=== PATIENT | male | born 1945 | race Caucasian/White ===

== ENCOUNTER → 2019-02-02 | Outpatient (CLI) | payer OTHER | LOC: M.RAD 09:13 | DX: M47.814 Spondylosis without myelopathy or radiculopathy, thoracic region (principal); J18.9 Pneumonia, unspecified organism ==

== ENCOUNTER → 2019-07-19 | Outpatient (CLI) | payer MEDICARE ==
--- NOTE | 2019-07-19 15:59 | 2DMMODE ---
[place] [address] 2 D/M-MODE ECHOCARDIOGRAM Name: BRIAN VENEGAS Audrey Room: [facility]#: [id number] Admission: 07/19/19 Attend Phys: Renan Moser, Discharge: Date of : 43 Date of Service: 07/19/19 1558 Report #: [id number] THIS REPORT FOR: cc: Figueroa Child MD, Dean L. MD Blick, David R. MD [facility] ~ APPROVED REPORT Study performed: 07/19/2019 14:21:53 EXAM: Comprehensive 2D, Doppler, and color-flow Echocardiogram BSA: 2.06 HR: 74 bpm BP: 141/72 mmHg Other Information Study Quality: Good Indications Palpitations 2D Dimensions IVSd: 11.87 (7-11mm) LVOT Diam: 20.54 (18-24mm) LVDd: 43.29 mm PWd: 9.69 (7-11mm) Ascending Ao: 29.26 (22-36mm) LVDs: 23.56 (25-40mm) Aortic Root: 33.57 mm Volumes Left Atrial Volume (Systole) LA ESV Index: 15.20 mL/m2 Aortic Valve AoV Peak Jacobo.: 1.42 m/s AO Peak Gr.: 8.11 mmHg LVOT Max P.22 mmHg AO Mean Gr.: 4.64 mmHg LVOT Mean P.31 mmHg LVOT Max V: 1.14 m/s AO V2 VTI: 27.38 cm LVOT Mean V: 0.69 m/s ROSHAN (VTI): 2.71 cm2 LVOT V1 VTI: 22.42 cm Mitral Valve E/A Ratio: 0.70 MV Decel. Time: 248.63 [place] [address] 2 D/M-MODE ECHOCARDIOGRAM Name: BRIAN VENEGAS Room: [facility]#: [id number] Admission: 07/19/19 Attend Phys: Renan Moser, Discharge: Date of : 43 Date of Service: 07/19/19 1558 Report #: [id number] MV E Max Jacobo.: 0.57 m/s MV PHT: 72.10 ms MVA (PHT): 3.05 cm2 TDI E/Lateral E': 8.14 E/Medial E': 6.33 Medial E' Jacobo.: 0.09 m/s Lateral E' Jacobo.: 0.07 m/s Pulmonary Valve PV Peak Jacobo.: 1.32 m/s PV Peak Gr.: 7.01 mmHg Left Ventricle The left ventricle is normal size. There is normal LV segmental wall motion. There is normal left ventricular wall thickness. Left ventricular systolic function is normal. The left ventricular ejection fraction is within the normal range. LVEF is 60-65%. Grade I - abnormal relaxation pattern. Right Ventricle The right ventricle is normal size. The right ventricular systolic function is normal. Atria The left atrium size is normal. The right atrium size is normal. Aortic Valve The aortic valve is normal in structure. No aortic regurgitation is present. There is no aortic valvular stenosis. Mitral Valve The mitral valve is normal in structure. Trace mitral regurgitation. Mild mitral regurgitation. No evidence of mitral valve stenosis. Tricuspid Valve The tricuspid valve is normal in structure. There is no tricuspid valve regurgitation noted. Pulmonic Valve The pulmonary valve is normal in structure. There is no pulmonic valvular regurgitation. Great Vessels The aortic root is normal in size[place] [address] 2 D/M-MODE ECHOCARDIOGRAM Name: BRIAN VENEGAS Room: [facility]#: [id number] Admission: 07/19/19 Attend Phys: Renan Moser, Discharge: Date of : 43 Date of Service: 07/19/19 1558 Report #: [id number] visualized. Pericardium There is no pericardial effusion. <Conclusion> Left ventricular systolic function is normal. The left ventricular ejection fraction is within the normal range. <ELECTRONICALLY SIGNED> By: Paul Kimble MD, FAC 07/19/19 1558 1558 1558 Paul Kimble MD, [facility] /INF
--- NOTE | 2019-07-19 17:17 | CARDNUC ---
[place] [address] CARDIAC NUCLEAR IMAGING REPORT Name: BRIAN VENEGAS Room: [facility]#: [id number] Admission: 07/19/19 Attend Phys: Renan Moser, Discharge: Date of : 43 Date of Service: 07/19/19 1715 Report #: [id number] THIS REPORT FOR: cc: Figueroa Child MD, Dean L. MD Liston, Michael J. MD [facility] ~ APPROVED REPORT Study performed: 07/19/2019 14:45:24 Exam: Nuclear Stress Test Indication: Chest pain, Fatigue, Palpitations, Diaphoresis. Patient Location: Out-Patient Stress Tech: Haylie Alston Stress Nurse: Yael Fishman R.N. NM Tech:CHERYL Del Rosario Ht: 6 ft 2 in Wt: 176 lbs BSA: 2.06 m2 BMI: 22.59 Medical History Medical History: Angina, Atrial Fibrillation, Fatigue, HTN, Weakness, Polio, Nausea, SVT, PAT, Diaphoresis, Past smoker. Medications: Metoprolol, Flecainide, ASA-81 MG. Allergies: No known drug allergies Cardiac Risk Factors: Age, FHX of CAD, HTN, Past Smoker, SVT, PAT. Previous Cardiac Procedures: None Pretest Chest Pain Characteristics: No chest pain Exercise History: Sedentary Physical Disabilities: Polio/wheelchair. Meds Held (24 hrs): Metoprolol. Stress Test Details Stress Test: Pharmacologic stress testing performed using 0.4 mg of regadenoson per 5 mL given IV over 10 seconds. HR Resting HR: 55 bpm Max Heart Rate (APMHR): 146 bpm Max HR Achieved: 100 bpm Target HR (85% APMHR): 124 bpm % of APMHR: 68 Recovery HR: [place] [address] CARDIAC NUCLEAR IMAGING REPORT Name: BRIAN VENEGAS Room: [facility]#: [id number] Admission: 07/19/19 Attend Phys: Renan Moser, Discharge: Date of : 43 Date of Service: 07/19/19 1715 Report #: [id number] Resting BP: 141/72 mmHg Max BP: 140/70 mmHg ECG Resting ECG: Sinus Rhythm Stress ECG: Sinus Rhythm ST Change: None Arrhythmia: None Recovery ECG: Sinus Rhythm Recovery ST Change: None Recovery Arrhythmia: None Clinical Reason for Termination: Completed protocol Stress Symptoms: Dyspnea, Nausea, Flushed/warmth, Lightheaded. Exercise duration: 00 min 00 sec Exercise capacity: 1.00 METs The patient tolerated Lexiscan infusion without significant cardiac symptoms. Nurse Comments A 73 year old male presented in a power wheelchair r/t polio for a sitting Lexiscan with C/O chest pain, diaphoresis, palpitations and fatigue. Test well tolerated. Recovery unremarkable with PO caffeine, effective. Patient was escorted via wheelchair to Echo then to Nuclear Medicine for imaging. Patient was stable and stated he felt good at that time. Stress ECG Conclusion The baseline 12-lead EKG shows sinus rhythm without significant ST segment or T wave abnormality. EKGs obtained during and post Lexiscan infusion show sinus rhythm with no significant ST segment or T wave changes when compared to baseline. There were no stress-induced arrhythmias. NM EXAM: Myocardial Perfusion REST/STRESS Imaging Protocol: Rest Tc-99m/Stress Tc-99m 1 day Resting Data Rest SPECT myocardial perfusion imaging was performed in supine position 30 minutes following the intravenous injection of 9.8 mCi of Tc-99m Sestamibi. Time of rest injection: 1245 Date: 07/19/2019 The images were gated to evaluate regional wall motion and calculate left [place] [address] CARDIAC NUCLEAR IMAGING REPORT Name: BRIAN VENEGAS Room: [facility]#: [id number] Admission: 07/19/19 Attend Phys: Renan Moser, Discharge: Date of : 43 Date of Service: 07/19/19 1715 Report #: [id number] Administration Route: IV Administration Site: Left Hand Pharmacologic Stress Pharmacologic stress test was performed by injecting Regadenoson 0.4 mg IV push followed by the intravenous injection of 34.0 mCi of Tc-99m Sestamibi. Time of stress injection: 1450 Date: 07/19/2019 Administration Route: IV Administration Site: Left Hand Gated Stress SPECT was performed 40 minutes after stress injection. The images were gated to evaluate regional wall motion and calculate left ventricular ejection fraction. Stress only was performed in the Supine position. Study Quality Study: Good Artifact: Mild Diaphragmatic artifact Study Data At rest, the left ventricular ejection fraction was 75%.. Post stress, the left ventricular ejection was 75%.. TID = 0.90. Perfusion Perfusion images show mild photopenia in the inferior wall that is more pronounced on the resting and stress images. Wall motion in this region on gated studies is normal suggesting diaphragmatic attenuation artifact. There were no significant fixed or reversible defects identified. Wall Motion Normal left ventricular wall motion. Nuclear Conclusion ECG Findings: negative for ischemia Clinical Findings: negative for ischemia Nuclear Findings: negative for ischemia Exercise Capacity: not assessed Left Ventricular Function: normal Risk Study: low Perfusion study showed no defect to suggest infarct or ischemia. Left ventricular systolic function is normal on gated studies. This [place] [address] CARDIAC NUCLEAR IMAGING REPORT Name: BRIAN VENEGAS Room: [facility]#: [id number] Admission: 07/19/19 Attend Phys: Renan Moser, Discharge: Date of : 43 Date of Service: 07/19/19 1715 Report #: [id number] <Conclusion> The baseline 12-lead EKG shows sinus rhythm without significant ST segment or T wave abnormality. EKGs obtained during and post Lexiscan infusion show sinus rhythm with no significant ST segment or T wave changes when compared to baseline. There were no stress-induced arrhythmias. <ELECTRONICALLY SIGNED> By: Renan Moser MD, FACC 07/19/19 1715 14 14 Renan Moser MD, FACC /INF
== END ==
LOC: M.CRD 06-09 16:32 → M.NUC 06-23 14:00 → M.CRD 07-14 13:00 → M.NUC 07-14 14:00
DX: I34.0 Nonrheumatic mitral (valve) insufficiency (principal); I48.0 Paroxysmal atrial fibrillation; R53.83 Other fatigue

== ENCOUNTER → 2021-04-19 | Outpatient (CLI) | payer OTHER | LOC: M.RAD 14:12 | PROVIDERS: ATTEND Orthopaedic Surgery | DX: S82.491A Other fracture of shaft of right fibula, initial encounter for closed fracture (principal); X58.XXXA Exposure to other specified factors, initial encounter; Y93.89 Activity, other specified; Y92.89 Other specified places as the place of occurrence of the external cause; Y99.8 Other external cause status ==